=== PATIENT | male | born 1960 | race Caucasian/White ===

== ENCOUNTER 2016-12-06 11:47 | Emergency (ER) | payer OTHER ==
[2016-12-06 12:09] VITALS: BP 121/78
--- NOTE | 2016-12-06 12:41 | UC ---
Throat Pain/Nasal Harish HPI - HPI Summary HPI Summary: Nasal congestion with very itchy throat since yesterday. Denies fever, cough, trouble breathing, or pain in throat. Throat sensation is annoying, not painful. - History of Current Complaint Chief Complaint: UCRespiratory Stated Complaint: SORE THROAT Time Seen by Provider: 12/06/16 12:22 Hx Obtained From: Patient Onset/Duration: Gradual Onset, Lasting Days Severity: Mild Cough: None Associated Signs & Symptoms: Positive: Negative - Allergies/Home Medications Allergies/Adverse Reactions: Allergies Allergy/AdvReac Type Severity Reaction Status Date / Time No Known Allergies Allergy Verified 05/07/16 10:35 PMH/Surg Hx/FS Hx/Imm Hx Endocrine History Of: Denies: Diabetes Cardiovascular History Of: Reports: Hypertension - PT. STATES CONTROLLED WITH MEDS Denies: Pacemaker/ICD GI/ History Of: Denies: Renal Disease Psychological History Of: Reports: Depression - PT. STATES CONTROLLED - Surgical History Surgical History: Yes Surgery Procedure, Year, and Place: HERNIA [id number], BIOPSY LEFT [id number], ARTHROSCOPE LEFT [id number], ESOPHAGEAL SX FOR ACID REFLUX 1996, BILAT INGUNIAL HERNIA REPAIRS 1983. HIATAL HERNIA REPAIR 2006. 2008 APPENDECTOMY. LEFT KNEE SCOPING 1996. NASAL POLYP REMOVED 2006-LEFT SHOULDER SURGERY REPAIR - Family History Known Family History: Negative: Blood Disorder - Social History Lives: Alone Alcohol Use: Rare Substance Use Type: None Smoking Status (MU): Never Smoked Tobacco Review of Systems Constitutional: Negative Skin: Negative Eyes: Negative ENT: Nasal Discharge Respiratory: Negative Cardiovascular: Negative Gastrointestinal: Negative Genitourinary: Negative Motor: Negative Neurovascular: Negative Musculoskeletal: Negative Neurological: Negative Psychological: Negative All Other Systems Reviewed And Are Negative: Yes Physical Exam Triage Information Reviewed: Yes Appearance: Well-Appearing, No Pain Distress, Well-Nourished Vital Signs: Initial Vital Signs Temp 99.2 F 12/06/16 12:06 Pulse 86 12/06/16 12:06 Resp 18 12/06/16 12:06 BP 121/78 12/06/16 12:06 Pulse Ox 98 12/06/16 12:06 Vital Signs Reviewed: Yes Eye Exam: Normal Eyes: Positive: Conjunctiva Clear ENT: Positive: Hearing grossly normal, Pharynx normal, Nasal congestion. Negative: Nasal drainage, TMs normal, Tonsillar swelling, Tonsillar exudate Dental Exam: Other - dentures Neck exam: Normal Neck: Positive: Supple Respiratory Exam: Normal Respiratory: Positive: Chest non-tender, Lungs clear, Normal breath sounds, No respiratory distress, No accessory muscle use Cardiovascular Exam: Normal Cardiovascular: Positive: RRR, No Murmur Musculoskeletal Exam: Normal Neurological Exam: Normal Psychological Exam: Normal Skin Exam: Normal Throat Pain/Nasal Course/Dx - Differential Dx/Diagnosis Provider Diagnoses: rhinitis Discharge - Discharge Plan Condition: Stable Disposition: HOME Prescriptions: Cetirizine* [ZyrTEC 10 MG TAB*] 10 mg PO DAILY #30 tab Patient Education Materials: Cold Symptoms (ED) Referrals: Lauren Castaneda MD [Primary Care Provider] - Additional Instructions: As we discussed, your symptoms can be from allergies or from a viral infection. Take a dose of diphenhydramine 25mg at bedtime if you do not get relief from the cetirizine. You can also gargle with a numbing agent (such as listerine) to help when you go to sleep.
== END 2016-12-06 12:44 | disposition home or self-care (01) ==
LOC: UCEAST 11:47
DX: J31.0 Chronic rhinitis (principal); I10 Essential (primary) hypertension
CPT/HCPCS: 99212; G0463

== ENCOUNTER 2018-03-27 20:58 | Emergency (ER) | payer MEDICAID, MEDICARE, OTHER ==
[2018-03-27] MEDS ORDERED: Cephalexin CAP* 500 MG PO ONE (21:28)
[2018-03-27 21:38] VITALS: BP 80/52
--- NOTE | 2018-03-27 21:57 | UC ---
Lula Dominguez Julia, scribed for Chace Zendejas MD on 03/27/18 at 2123 . Skin Complaint HPI - HPI Summary HPI Summary: This patient is a 57 year old M presenting to [facility] accompanied by his son with a chief complaint of a large painful red spot that has been progressively spreading for the past week. Pain is 8/10 in severity. Denies purities fever, chills, CP, SOB, abdominal pain, n/v/d, and dizziness. Denies known insect bite or environmental expose to a wooded area. Denies any new medications. No sick contact. - History of Current Complaint Chief Complaint: UCSkin Time Seen by Provider: 03/27/18 20:59 Stated Complaint: RASH ON BACK Hx Obtained From: Patient Onset/Duration: Gradual Onset, Lasting Weeks Timing: Constant Pain Intensity: 8 Pain Scale Used: 0-10 Numeric Location: Other - back Character: Pain, Redness Alleviating Factor(s): Nothing Associated Signs & Symptoms: Negative: Nausea, Vomiting, Difficulty Breathing, Fever, Chills, Abdominal Pain - Allergy/Home Medications Allergies/Adverse Reactions: Allergies Allergy/AdvReac Type Severity Reaction Status Date / Time No Known Allergies Allergy Verified 03/27/18 21:08 Home Medications: Home Medications buPROPion TAB* [Wellbutrin TAB*] 150 mg PO DAILY 03/27/18 [History Confirmed ] Review of Systems Constitutional: Negative Skin: Rash - painful red rash on back Eyes: Negative ENT: Negative Respiratory: Negative Cardiovascular: Negative Gastrointestinal: Negative Genitourinary: Negative Motor: Negative Neurovascular: Negative Musculoskeletal: Negative Neurological: Negative Psychological: Negative Is Patient Immunocompromised?: No All Other Systems Reviewed And Are Negative: Yes PMH/Surg Hx/FS Hx/Imm Hx Other Endocrine History: negative Cardiovascular History: Hypertension Other Cardiovascular History: negative Other Respiratory History: negative Other GI/ History: negative Other Neurological History: negative Psychological History: Depression Other Psychological History: negative Other Cancer History: negative - Surgical History Surgical History: Yes Surgery Procedure, Year, and Place: HERNIA [id number], BIOPSY LEFT [id number], ARTHROSCOPE LEFT [id number], ESOPHAGEAL SX FOR ACID REFLUX 1996, BILAT INGUNIAL HERNIA REPAIRS 1983. HIATAL HERNIA REPAIR 2006. 2009 APPENDECTOMY. LEFT KNEE SCOPING 1996. NASAL POLYP REMOVED 2006-LEFT SHOULDER SURGERY REPAIR - Family History Known Family History: Negative: Blood Disorder - Social History Alcohol Use: Occasionally Substance Use Type: None Smoking Status (MU): Never Smoked Tobacco Physical Exam - Summary Physical Exam Summary: Appearance: Well-Appearing, No Pain Distress, Well-Nourished Eyes: conjunctiva clear, no discharge ENT: Hearing grossly normal, no muffled/hoarse voice. Neck: Normal, Supple Respiratory/Lung Sounds: Lungs clear, Normal breath sounds, No respiratory distress, No accessory muscle use Cardiovascular: RRR, No murmur Abdomen: Nontender, Soft, no guarding, not distended Bowel Sounds: Present Musculoskeletal: Normal Neurological: Alert, muscle tone normal Psychiatric:Normal, age appropriate behavior Skin: Warm, Dry. 20 cm x 21 cm erythematous raise blanching warm , tender lesion on left upper back. small satellite lesion noted next to it Triage Information Reviewed: Yes Vital Signs: Initial Vital Signs Temp 98.6 F 03/27/18 21:04 Pulse 95 03/27/18 21:04 Resp 16 03/27/18 21:04 BP 83/57 03/27/18 21:04 Pulse Ox 96 03/27/18 21:04 Vital Signs Reviewed: Yes Course/Dx - Course Course Of Treatment: During the visit today, we discussed the findings and further plan. I will prescribe the medication to the pharmacy . His BP was slight;ly low and he has been taking double of his BP mediations. He denies any chest pain or SOB and feels completely fine. I offered to do EKG and start work up but he declined. Advised him to call [phone] with any chest pain,SOB or dizziness. Patient expressed understanding . - Diagnoses Provider Diagnoses: cellulitis Discharge - Sign-Out/Discharge Documenting (check all that apply): Discharge/Admit/Transfer - Discharge Plan Condition: Stable Disposition: HOME Prescriptions: Cephalexin CAP* [Keflex CAP*] 500 mg PO TID 10 Days #30 cap Patient Education Materials: Cellulitis (ED) Referrals: Roman Steiner MD [Medical Doctor] - If Needed Moises Santiago MD [Primary Care Provider] - 4 Days Additional Instructions: Start taking keflex . It has been prescribed to the pharmacy . Follow up with your primary care doctor in 3 to 4 days. Please follow up with dermatology for the consult if no better Return to Urgent care / ER if symptoms get worse. - Billing Disposition and Condition Condition: STABLE Disposition: Home The documentation as recorded by the Lula frey Julia accurately reflects the service I personally performed and the decisions made by me, Chace Zendejas MD.
== END 2018-03-27 21:40 | disposition home or self-care (01) ==
LOC: UCEAST 20:58
DX: L03.312 Cellulitis of back [any part except buttock and flank] (principal)
CPT/HCPCS: 99212; A9270-GY; G0463